=== PATIENT | female | born 1960 | race Caucasian/White ===

== ENCOUNTER 2017-10-10 11:59 | Emergency (ER) | payer SELFPAY ==
[~2017-10-10] VITALS: Ht 167.6 cm; Wt 127.0 kg
[~2017-10-10 11:59] MED LIST: ALPRAZOLAM0.5 MG PO; AMLODIPINE BESY10 MG PO; COREG12.5 MG PO; METOPROLOL TART25 MG PO; NITROFURANTOIN100 MG PO; SYNTHROID50 MCG PO
[2017-10-10 16:06] LABS: BILIRUBIN,URINE NEGATIVE (NEGATIVE); KETONES,URINE NEGATIVE (NEGATIVE); LEUKOCYTE ESTERASE ,URINE 1+ (NEGATIVE); NITRITE,URINE NEGATIVE (NEGATIVE); URINE UROBILINOGEN 0.2 mg/dL (0.2 - 1)
[2017-10-10 16:14] LABS: CLARITY,URINE CLOUDY (CLEAR); COLOR,URINE RED (YELLOW); PROTEIN,URINE DIPSTICK 2+ (NEGATIVE)
[2017-10-10 16:18] LABS: PREGNANCY TEST, URINE NEGATIVE (NEGATIVE)
[2017-10-10 16:29] LABS: RBC,URINE >50 /HPF (0-5)
[2017-10-10 16:43] LABS: BASOPHILS % 0.5 % (0.0-1.0); EOSINOPHILS # (AUTO) 0.1 (0.0-0.4); EOSINOPHILS % 1.4 % (0.0-6.0); HEMATOCRIT 31.8 % (34.2-44.1); HEMOGLOBIN 9.2 g/dL (12.0-16.0); LYMPHOCYTES # (AUTO) 1.6 (1.0-3.2); LYMPHOCYTES % 19.2 % (18.0-39.1); MEAN CORPUSCULAR HEMOGLOBIN 20.4 pg (28-32); MEAN CORPUSCULAR HGB CONC 28.9 g/dL (31-35); MEAN CORPUSCULAR VOLUME 70.5 fL (81-99); MONOCYTES # (AUTO) 0.5 (0.2-0.8); NEUTROPHILS % 72.1 % (38.7-80.0); PLATELET COUNT 296 x10e3/uL (140-360); RED BLOOD COUNT 4.51 x10e6/uL (3.6-5.1); RED CELL DISTRIBUTION WIDTH 18.3 % (11.7-14.4)
[2017-10-10 17:05] LABS: ALANINE AMINOTRANSFERASE 16 IU/L (0-55); ALBUMIN 3.6 g/dL (3.5-5.0); ALBUMIN/GLOBULIN RATIO 0.8 (0.8-2.0); ALKALINE PHOSPHATASE 93 IU/L (40-150); ANION GAP 12.6 mmol/L (8-16); BLOOD UREA NITROGEN 9 mg/dL (7-26); BUN/CREATININE RATIO 12 (6-25); CALCIUM 9.1 mg/dL (8.4-10.2); CARBON DIOXIDE 23 mmol/L (22-29); CHLORIDE 107 mmol/L (98-107); CREATININE, SERUM 0.76 mg/dL (0.57-1.11); EST GLOMERULAR FILTRATION RATE > 60 ML/MIN (60-); GLUCOSE 98 mg/dL (74-118); POTASSIUM 4.6 mmol/L (3.5-5.1); SODIUM 138 mmol/L (136-145)
[2017-10-10 20:30] LABS: HEMATOCRIT 32.7 % (34.2-44.1); HEMOGLOBIN 9.4 g/dL (12.0-16.0)
[2017-10-10 20:41] LABS: INR 0.98; PROTHROMBIN TIME 13.5 seconds (11.9-14.5)
[2017-10-10 20:42] LABS: PARTIAL THROMBOPLASTIN TIME 27.6 seconds (23.8-35.5)
--- NOTE | 2017-10-10 21:53 | Diagnostic Imaging Report ---
EXAM: Transabdominal and Transvaginal Pelvic Ultrasound INDICATION: Vaginal bleeding uterine fibroids. COMPARISON: None TECHNIQUE: Grayscale transverse and sagittal transabdominal and transvaginal images were obtained of the pelvis. Transvaginal imaging was medically necessary to better evaluate the endometrium and the adnexa. CLINICAL HISTORY: 57 year old A0; last menstrual period: Unaware.. FINDINGS: Uterus Orientation: Normal Size: 10.5 x 5.6 x 6.5 cm, Normal Mass: None Cervix: Normal Endometrium: Thickness: 0.9 cm, Normal. Appearance: Homogeneous echotexture without focal thickening. Right ovary: Size: 2.5 x 2.9 x 2.3 cm Mass/Cyst: None Left ovary: Not visualized Adnexa: Normal Cul-de-sac: No free fluid IMPRESSION: 1. Unremarkable pelvic ultrasound exam. 2. Left ovary is not visualized. Signed by: Dr. Devyn Bishop M.D. on 10/10/2017 9:50 PM
[2017-10-11 01:24] VITALS: BP 166/98
== END 2017-10-11 01:28 | disposition home or self-care (01) ==
LOC: ER 11:59
DX: N93.9 Abnormal uterine and vaginal bleeding, unspecified (principal); N30.01 Acute cystitis with hematuria; R10.2 Pelvic and perineal pain
CPT/HCPCS: 36415; 76856; 80053; 81001; 81025; 85014; 85018; 85025; 85610; 85730; 87086; 93005; 99284